=== PATIENT | male | born 1995 | race Caucasian/White ===

== ENCOUNTER → 2019-09-13 08:00 | Outpatient (BNVA) | payer BC, SELFPAY | PROVIDERS: Visit Provider Counselor Professional | DX: F90.2 Attention-deficit hyperactivity disorder, combined type (principal); F41.1 Generalized anxiety disorder | CPT/HCPCS: 90791 ==

== ENCOUNTER → 2019-12-01 14:15 | Outpatient (BNVA) | payer BC, SELFPAY | PROVIDERS: Visit Provider Nurse Practitioner Family | DX: Z20.828 Contact with and (suspected) exposure to other viral communicable diseases (principal) | CPT/HCPCS: 87635 ==

== ENCOUNTER → 2020-03-17 12:42 | Outpatient (BNVA) | payer BC, SELFPAY | PROVIDERS: Visit Provider Psychiatry & Neurology Psychiatry | DX: F90.9 Attention-deficit hyperactivity disorder, unspecified type (principal) | CPT/HCPCS: 90792 ==

== ENCOUNTER → 2020-03-24 12:50 | Outpatient (BNVA) | payer OTHER, SELFPAY | PROVIDERS: PCP Nurse Practitioner Family; Visit Provider Orthopaedic Surgery | DX: Z20.828 Contact with and (suspected) exposure to other viral communicable diseases (principal); Z01.812 Encounter for preprocedural laboratory examination | CPT/HCPCS: 87635 ==

== ENCOUNTER 2020-03-27 06:04 | Day surgery (SDC) | payer OTHER, SELFPAY ==
[2020-03-26 16:26] VITALS: BMI 22.4
[2020-03-27] VITALS (7 sets, daily range): BP systolic 116–188; BP diastolic 58–92; PULSE 58–88; RESP 13–18; TEMP 36.3–36.6; O2SAT 97–99
[2020-03-27] MEDS: sodium chloride 0.9% 1,000 ML 30 ML IV (07:16)
--- NOTE | 2020-03-27 07:42 | ANES.PREANE2 ---
Pre-Anesthetic Assessment Pre-Anesthetic Assessment: Height/Weight: Height 1.85 m Weight 77.111 kg Temp Pulse Resp BP Pulse Ox 97.6 F 65 18 133/76 97 03/27/20 07:11 03/27/20 07:11 03/27/20 07:11 03/27/20 07:11 03/27/20 07:11 Preop Diagnosis: Perilabral cyst right shoulder possible labral tear Proposed Procedure: Operation Date: 03/27/20 09:45 Proposed Procedures p Shoulder Arthroscopy [id number] M67.412(Right) - Wilfrido Del Valle MD s with possible labral debridement versus repair(Right) - Wilfrido Del Valle MD Familial anesthetic complications: None Was Beta Klaus taken within 24 hours: N/A Last intake: Intake Last Liquid Date 03/26/20 Last Liquid Time 00:00 Last Solid Date 03/26/20 Last Solid Time 18:00 Social: Social History: Tobacco and No alcohol Exam: Pre-Anes Outpt Exam: alert, oriented x 3, clear to auscultation bilaterally and regular rate & rhythm Airway: Cervical ROM: WNL MP: 2 Dentition: Full Neuropsych: Comments: ADHD Anesthetic Plan: ASA status: 1 Anesthesia: General and Regional (specify below) Other: Interscalene PRN (patient declining block) Risk of > 500 ml blood loss (7ml/kg in children): No Meds/Allergies Current Medications: Current Medications Generic Name Dose Route Start Last Admin Trade Name Freq PRN Reason Stop Dose Admin Sodium Chloride 1,000 mls @ 30 ml s/hr 03/27/20 07:00 03/27/20 07:16 Sodium Chloride 0.9% IV 03/28/20 06:59 30 mls/hr .Q24H ANA Administration PFSH Anesthesia PFSH: Medical History ADHD Surgical History Status post open reduction with internal fixation (ORIF) of fracture of ankle Family History Other CAD (coronary artery disease) Diabetes Social History Smoking and tobacco status: current every day smoker smokeless tobacco Smokeless tobacco user: chewing tobacco Smokeless tobacco details: 1 can/day Alcohol intake: never Current gender identity: Male Data Anesthesia Cardiac Studies: No Data to Display
[2020-03-27] MEDS: midazolam 1 mg/mL INJ 5 ML 5 MG IVP (07:57)
--- NOTE | 2020-03-27 08:15 | ANES.PROC ---
Anesthesia Procedures Procedure/Date: 03/27/20 Nerve Block ^: Nerve Block 1: Main Anesthesia: general anesthesia Time Out Performed: Yes Consent: requested by attending/covering physician, from patient, risks and benefits reviewed and patient agrees to proceed Nerve block location: supraclavicular (R) Anesthesia monitors applied: pulse oximetry, EKG, BP cuff and oxygen Nerve block position: semi sitting Anesthetic Used: ropivicaine 0.5% and with decadron Amount of anesthesia used (mL): 30 Ultrasound used to: recognize landmarks and visualize and ID brachial plexus Nerve Stimulator Used?: No Interscalene/Femoral BLK: 2 stimuplex 22 g needle used for position and inplane approach, visualize local anesthetic spread and no vascular puncture identified Injection: neg aspiration of heme and paresthesia +/- (negative) Patient Tolerated Procedure: well and no complications Complications: none Additional Comments: Patient with unclear interscalene anatomy, thus supraclavicular/low insterscalene performed. Patient very anxious during procedure, tensing muscles, moving about, asking questions. Offered multiple times during procedure to abort if uncomfortable. No parasthesias during procedure, block setting up well post-procedure.
--- NOTE | 2020-03-27 09:13 | W.PM.OPSUD ---
Surgery/Procedure H&P Update DATE OF PROCEDURE: March 27, 2020 DATE H&P PERFORMED: 03/18/20 PREOP DIAGNOSIS: Perilabral cyst right shoulder possible labral tear PLANNED PROCEDURE: Operation Date: 03/27/20 09:45 Proposed Procedures p Shoulder Arthroscopy [id number] M67.412(Right) - Wilfrido Del Valle MD s with possible labral debridement versus repair(Right) - Wilfrido Del Valle MD
--- NOTE | 2020-03-27 09:56 | SUR.OPER ---
1009 updated of surgical status
--- NOTE | 2020-03-27 10:52 | PM.OP ---
Operative Report Date of procedure: March 27, 2020 Pre-op Diagnosis: Perilabral cyst right shoulder possible labral tear Post-op diagnosis: same Post-op Diagnosis: Para labral cyst posterior inferior shoulder and posterior inferior labral tear Post-op Findings: Posterior inferior labral tear Procedure Done: Arthroscopic repair right shoulder posterior inferior labral Implants: [employer] 1.8 mm Q fix anchor Pathology: none sent Surgeon: Wilfrido Del Valle Anesthesia: General and Nerve Block (Infraclavicular nerve block) Estimated blood loss (mL): 5 Complications: None Findings: The patient had tearing of his posterior inferior labrum and approximately the 7 o'clock position with communication to a posterior inferior perilabral cyst Condition: stable Disposition: PACU Brief History: Dg is a 24-year-old male with right shoulder pain and an MRI revealing a para labral cyst. He had persistent pain unresponsive to rest and therapy and arthroscopy was chosen to address a likely labral tearing and decompress the cyst Procedure: The patient was taken to the operating room after he was given a infraclavicular block. He was given 2 g of Ancef and a general anesthesia. He was positioned in the lateral position with the right arm in 15 pounds of traction. A posterior incision was made 2 cm inferior and medial to the posterior corded acromion. A scope cannula and trocar driven into the glenohumeral joint. An anterior portal was created a bit more medial than normal to allow better access to the posterior inferior glenoid. The diagnostic portion arthroscopy was performed. The biceps attachment superior labrum and anterior labrum were healthy.. There was noted to be a degenerative type tear at approximately the 7 o'clock position. The scope was then moved to the anterior portal and working through the posterior portal an incisor shaver was introduced debriding the labral attachment on the posterior inferior glenoid extending this down into cystic communication with the cyst, there and decompressing the cyst. A rasp was introduced in the posterior inferior glenoid rasped in the posterior inferior position. Through a posterior stab wound a 1.8 mm Q fix anchor was placed in the junction of the articular cartilage and bone. A 6 sharp suture retriever was used to shuttle shuttle 1 limb through the bulk of the posterior inferior labrum. The sutures were then retrieved through the anterior portal and secured repairing the posterior inferior labrum to the debrided bone. The shoulder was irrigated with saline. Portals were closed with 3-0 Prolene. Sterile dressings were applied. The patient was placed in a sling, extubated, and taken to recovery room in stable condition.
--- NOTE | 2020-03-27 14:46 | ANE.PACU2 ---
Inpatient post-anesthesia follow up: Airway intact: Yes Vital signs: Temperature 97.5 F Pulse Rate 58 Respiratory Rate 16 Blood Pressure 128/76 Pulse Oximetry 99 Oxygen Delivery Me thod Room Air Oxygen Flow Rate Fraction of Inspir ed Oxygen Hydration adequate: Yes Nausea and vomiting: No Pain level: 1 Mental status: Baseline
== END 2020-03-27 11:40 | disposition home or self-care (01) ==
PROVIDERS: PCP Nurse Practitioner Family; Visit Provider Orthopaedic Surgery
PROC: (CPT 29805; principal; 2020-03-27 09:45)
DX: S43.491A Other sprain of right shoulder joint, initial encounter (principal); X58.XXXA Exposure to other specified factors, initial encounter; F17.210 Nicotine dependence, cigarettes, uncomplicated
CPT/HCPCS: 29807; 12345; 64415; 96374; 96375; C1713; J0690; J1100; J2250; J2405; J2704; J2795; J3010; J3490; J7030

== ENCOUNTER → 2020-04-17 09:22 | Outpatient (BNVA) | payer BC, SELFPAY | PROVIDERS: PCP Nurse Practitioner Family; Visit Provider Psychiatry & Neurology Psychiatry | DX: F90.9 Attention-deficit hyperactivity disorder, unspecified type (principal) | CPT/HCPCS: 99214 ==

== ENCOUNTER → 2020-06-30 08:24 | Outpatient (BNVA) | payer BC, SELFPAY | PROVIDERS: PCP Nurse Practitioner Family; Visit Provider Psychiatry & Neurology Psychiatry | DX: F90.9 Attention-deficit hyperactivity disorder, unspecified type (principal) | CPT/HCPCS: 99214 ==

== ENCOUNTER → 2020-10-15 15:11 | Outpatient (BNVA) | payer BC, SELFPAY | PROVIDERS: PCP Nurse Practitioner Family; Visit Provider Nurse Practitioner Family | DX: Z20.822 Contact with and (suspected) exposure to COVID-19 (principal); F90.9 Attention-deficit hyperactivity disorder, unspecified type; J06.9 Acute upper respiratory infection, unspecified | CPT/HCPCS: 87635 ==

== ENCOUNTER 2020-10-18 07:15 | Outpatient (CLI) | payer SELFPAY ==
[2020-10-18 07:25] VITALS: BP 136/85; PULSE 70; RESP 18; TEMP 36.8; O2SAT 99
[2020-10-18 08:05] VITALS: BP 121/77; PULSE 67; RESP 18; TEMP 36.7; O2SAT 99
[2020-10-18 09:00] VITALS: BP 121/79; PULSE 70; RESP 18; TEMP 36.6; O2SAT 98
== END 2020-10-18 07:16 | disposition home or self-care (01) ==
PROVIDERS: PCP Nurse Practitioner Family; Visit Provider Nurse Practitioner Family
DX: U07.1 COVID-19 (principal)
CPT/HCPCS: 96365

== ENCOUNTER → 2023-05-17 09:45 | Outpatient (BNVA) | payer BC, SELFPAY | PROVIDERS: PCP Nurse Practitioner Family; Visit Provider Nurse Practitioner Family | DX: M25.531 Pain in right wrist (principal) | CPT/HCPCS: 73110 ==